=== PATIENT | male | born 1995 | race Caucasian/White ===

== ENCOUNTER 2017-07-03 19:50 | Emergency (ER) | payer OTHER, SELFPAY ==
[2017-07-03 19:51] VITALS: BP 148/94; PULSE 67; RESP 18; TEMP 36.9; O2SAT 99; BMI 28.4
--- NOTE | 2017-07-03 20:26 | ED.VISSUMM ---
- ER Visit Summary Date of Service: 07/03/17 Chief Complaint: Acute left ear pain History of Present Illness: The patient is a 22 M who presents with acute left ear pain that started 3 hours prior to presentation. He had URI sinus symptoms for the past 2-3 weeks. Does complain of headache, sinus pressure, nasal congestion. He did have a cough. He denies fever or chills. He denies photophobia or stiffness of his neck. He denies rash. Physical Examination: Vitals remarkable blood pressure 140/94. He is afebrile. He appears uncomfortable. HEENT exam is remarkable for acute otitis super T1 on the left. Heart is regular without murmur, gallop or rub. S1 and S2 are normal. Lungs are clear to auscultation with good movement of air bilaterally. Test Results: None Emergency Department Course and Treatment: 500 mg Naprosyn and 875 mg of Augmentin Treatment Plan: Prescription for Naprosyn, Augmentin and [place] Disposition: Discharged to home Impression: Acute left otitis media super vertebral This note was generated with [employer] dictation software. It may contain incorrect words, spelling, and punctuation that were not noted in review of the chart prior to signing ED Disposition - Plan for ED Patient: Disposition: Home or Assisted Living Chief Complaint: Ear Problem Instructions: ED Otitis Media Acute Adult Prescriptions: Hydrocodone Bitart/Apap 5-325 [[place] 5MG-325MG] 1 tab PO Q6H PRN PRN #5 tab PRN Reason: Pain Amoxicillin/Potassium Clav [Augmentin 875-125 Tablet] 1 ea PO BID #20 tab Naproxen [Naprosyn] 500 mg PO BID #10 tab Referrals: Doctor,Your [STAFF PHYSICIAN] - 3-5 Days if not improving
--- NOTE | 2017-07-03 20:32 | ED.DCSUM_ITS ---
- ER Visit Summary Date of Service: 07/03/17 Chief Complaint: Acute left ear pain History of Present Illness: The patient is a 22 M who presents with acute left ear pain that started 3 hours prior to presentation. He had URI sinus symptoms for the past 2-3 weeks. Does complain of headache, sinus pressure, nasal congestion. He did have a cough. He denies fever or chills. He denies photophobia or stiffness of his neck. He denies rash. Physical Examination: Vitals remarkable blood pressure 140/94. He is afebrile. He appears uncomfortable. HEENT exam is remarkable for acute otitis super T1 on the left. Heart is regular without murmur, gallop or rub. S1 and S2 are normal. Lungs are clear to auscultation with good movement of air bilaterally. Test Results: None Emergency Department Course and Treatment: 500 mg Naprosyn and 875 mg of Augmentin Treatment Plan: Prescription for Naprosyn, Augmentin and [place] Disposition: Discharged to home Impression: Acute left otitis media super vertebral This note was generated with Dine in dictation software. It may contain incorrect words, spelling, and punctuation that were not noted in review of the chart prior to signing ED Disposition - Plan for ED Patient: Disposition: Home or Assisted Living Chief Complaint: Ear Problem Instructions: ED Otitis Media Acute Adult Prescriptions: Hydrocodone Bitart/Apap 5-325 [[place] 5MG-325MG] 1 tab PO Q6H PRN PRN #5 tab PRN Reason: Pain Amoxicillin/Potassium Clav [Augmentin 875-125 Tablet] 1 ea PO BID #20 tab Naproxen [Naprosyn] 500 mg PO BID #10 tab Referrals: Doctor,Your [STAFF PHYSICIAN] - 3-5 Days if not improving
[2017-07-03] MEDS: Naproxen 500 MG Tablet PO (20:39)
[2017-07-03] MEDS: Amox/Clavulanate 875 MG Tablet PO (20:39)
[2017-07-03 20:41] VITALS: PULSE 94; RESP 18
--- NOTE | 2017-07-03 20:41 | ED.RN ---
THIS NURSE REVIEWED D/C INSTRUCTIONS WITH PT. PT VERBALIZED UNDERSTANDING OF INSTRUCTIONS. PT DENIES FURTHER NEEDS OR QUESTIONS AT THIS TIME. PT AMBULATES FROM THE DEPARTMENT WITHOUT ASSISTANCE FROM STAFF
== END 2017-07-03 20:42 | disposition home or self-care (01) ==
PROVIDERS: Emergency Provider Emergency Medicine
DX: H66.92 Otitis media, unspecified, left ear (principal); R51 Headache; R05 Cough
CPT/HCPCS: 99283

== ENCOUNTER 2019-08-02 20:04 | Emergency (ER) | payer OTHER, SELFPAY ==
[2019-08-02 20:05] VITALS: BP 123/89; PULSE 74; RESP 18; TEMP 36.8; O2SAT 98; BMI 25.5
--- NOTE | 2019-08-02 20:20 | ED.RN ---
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 DENIES LOC. REPORTS BLEEDING ON INCIDENT, BUT NO BLEEDING SINCE. PT WITH MINOR ECCHYMOSIS PRESENT TO INNER EYE LIDS. PT PARENTS EXPRESSED CONCERN TO PT THAT NOSE WAS SLIGHTLY CROOKED. PT REPORTS SWELLING HAS DECREASED OVER THE LAST THREE DAYS.
--- NOTE | 2019-08-02 20:33 | ED.VIS.GEN ---
History of Present Illness Chief Complaint: Other, Pain/Inj Detail of Chief Complaint: Nasal injury Informant: Patient Onset: Days Current Severity: Mild Maximum Severity: Mild Narrative: Patient presents with concern for nasal fracture. 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 He kicked his nose against his knee. He did have a nosebleed for a short time that spontaneously resolved. Patient states that the swelling has come down quite a bit but his mother thought his nose looks crooked and wanted him to be checked. Past Medical History - Allergies and Home Meds Allergies/Adverse Reactions: Allergies No Known Allergies Allergy (Verified 08/02/19 20:06) Primary Care Physician: [facility] Doctor,Out of [NON-STAFF] - Past Medical History: None Smoking Status: Never smoker Review of Systems General: Denies: Chills, Fever Eyes: Denies: Visual changes - bilaterally ENT: Reports: - - Nasal bridge pain Cardiovascular: Denies: Chest pain Respiratory: Denies: Dyspnea Gastrointestinal: Denies: Abdominal pain, Nausea, Vomiting Musculoskeletal: Denies: Neck pain Skin: Reports: Wounds Neurological: Denies: Headache Allergy: Denies: Uticaria Physical Exam Vital Signs/Narrative: Vital Signs Temp Pulse Resp BP Pulse Ox 08/02/19 20:05 98.2 F 74 18 123/89 H 98 Inital Vital Signs reviewed: Yes General: Well nourished, Well developed Head: Normocephalic Eyes: Perrl, EOMI, - - Small ecchymosis right infraorbital region. ENT: TM's clear, - - Nasal turbinates mildly inflamed. No blood noted in the nares. Neck: Supple Cardiovascular: Regular rate, Regular rhythm Respiratory: No distress, CTA bilaterally Abdomen: Soft, Nontender Neurological: Alert, Oriented x3 Psychological: Normal affect Diagnostic/Tx/Re-eval Impressions Nasal Bones X-Ray 08/02/19 20:42 IMPRESSION: Normal x-ray examination of the nasal bones. Electronically Signed: Donnie Chan MD at 20:59 EST , Service support , 08/02/19 20:42 Nasal Bones min 3 Views [RAD] Stat - Medical Decision Making Test results discussed with the patient. At this time there is no evidence of bony fracture. If patient continues to have concerns he will be referred to ENT for follow-up. ED Disposition - Plan for ED Patient: Disposition: Home or Assisted Living Diagnosis: Nasal contusion Instructions: Nasal Contusion Referrals: Nguễyn Alicia MD [STAFF PHYSICIAN] - As Needed
--- NOTE | 2019-08-02 20:42 | RAD_ITS ---
STUDY: X-RAY - NASAL BONES REASON FOR EXAM: Male, 24 years old. KNEE TO THE NOSE. SWELLING TECHNIQUE: 3 view(s) of the nasal bones. COMPARISON: None. FINDINGS: Normal nasal bones. Normal anterior nasal spine. There is no demonstrated soft tissue swelling. The remaining visualized osseous structures are normal. There is no demonstrated acute fracture of the otherwise visualized osseous structures. Normal visualized paranasal sinuses. RAD/Nasal Bones min 3 Views IMPRESSION: Normal x-ray examination of the nasal bones. Electronically Signed: Donnie Chan MD at 20:59 EST , Service support ,
[2019-08-02 21:27] VITALS: RESP 18
== END 2019-08-02 21:28 | disposition home or self-care (01) ==
PROVIDERS: Emergency Provider Emergency Medicine; PCP Radiology Neuroradiology
DX: S00.33XA Contusion of nose, initial encounter (principal); W51.XXXA Accidental striking against or bumped into by another person, initial encounter
CPT/HCPCS: 70160; 99282